=== PATIENT | female | born 1990 | race Caucasian/White ===

== ENCOUNTER 2017-12-10 08:00 | Outpatient (CLI) | payer OTHER | END 2017-12-10 08:01 | disposition home or self-care (01) | LOC: LAB.R 08:00 | PROVIDERS: ATTEND Registered Nurse | DX: Z11.3 Encounter for screening for infections with a predominantly sexual mode of transmission (principal) | CPT/HCPCS: 87491; 87591 ==

== ENCOUNTER 2018-02-26 11:18 | Outpatient (CLI) | payer OTHER ==
--- NOTE | 2018-02-26 14:02 | Ultrasound Report ---
Reason: THYROMEGALY Procedure Date: 02/26/2018 Accession Number: [id number] / [id number] Procedure: US - Head or Neck Soft Tissue CPT Code: FULL RESULT: EXAM: THYROID ULTRASOUND EXAM DATE: 02/26/2018 12:21 PM. CLINICAL HISTORY: Thyromegaly. COMPARISON: None. TECHNIQUE: Real time sonographic imaging of the thyroid was performed by the general production worker. Multiple account service representative static images were saved for review. FINDINGS: THYROID GLAND: Right Lobe: 4.5 x 1.2 x 1.6 cm, volume 4.5 cc. Normal background echotexture. Right Lobe Nodules: None. Left Lobe: 2.6 x 1.0 x 1.5 cm, volume 2.8 cc. Normal background echotexture. Left Lobe Nodules: None. Isthmus: 0.4 cm AP. Isthmic Nodules: None. LYMPH NODES: No adenopathy demonstrated in the central or lateral compartment. OTHER: There is a 0.8 cm ovoid hyperechoic focus in comparison to the thyroid parenchyma that was identified inferior to the left lobe of the thyroid with no increased vascularity by color Doppler, the finding is nonspecific. IMPRESSION: Normal background thyroid parenchyma with no discrete thyroid nodules identified. Incidental 0.8 cm hyperechoic focus of unclear clinical significance as described. Management recommendations are based on 2015 [place] [employer] Management Guidelines for Adult Patients with Thyroid Nodules and Differentiated Thyroid Cancer. RADIA
== END 2018-02-26 11:19 | disposition home or self-care (01) ==
LOC: DI 11:18
PROVIDERS: ATTEND Registered Nurse
DX: E01.0 Iodine-deficiency related diffuse (endemic) goiter (principal)
CPT/HCPCS: 76536